=== PATIENT | female | born 1975 | race African-American/Black ===

== ENCOUNTER 2023-01-13 12:21 | Emergency (ER) | payer MEDICAID ==
[~2023-01-13] VITALS: Ht 165.1 cm; Wt 79.4 kg
[2023-01-13 12:27] VITALS: O2SAT 99
[2023-01-13] MEDS ORDERED: LIDOCAINE HCL/PF 1% 10 MG/ML 5ML VIAL INFIL ONE (13:45)
[2023-01-13] MEDS ORDERED: CEFTRIAXONE SODIUM 500 MG/VIAL IM ONE (13:45)
[2023-01-13] MEDS ORDERED: TETANUS, DIPHTHERIA, PERTUSSIS VAC/PF 0.5ML (>10YR OLD) IM ONE ×2 (13:45→17:00)
[2023-01-13] MEDS ORDERED: HYDROCODONE/ACETAMINOPHEN 5/325MG TABLET PO ONE (13:45)
[2023-01-13] MEDS ORDERED: BACITRACIN ZINC OINT UDPKT TOP ONE (13:45)
[2023-01-13] MEDS ORDERED: HYDROCODONE/ACETAMINOPHEN 5/325MG TABLET PO NR (16:30)
[2023-01-13] MEDS ORDERED: LIDOCAINE HCL/PF 1% 10 MG/ML 5ML VIAL INFIL NR (16:30)
[2023-01-13] MEDS ORDERED: BACITRACIN ZINC OINT UDPKT TOP NR (16:30)
[2023-01-13] MEDS ORDERED: CEFTRIAXONE SODIUM 500 MG/VIAL IM NR (16:30)
[2023-01-13] MEDS ORDERED: SULF1TAB48 MT (16:52)
[2023-01-13] MEDS ORDERED: BO1 TP (16:52)
[2023-01-13] MEDS ORDERED: ACET-2708 MT (16:52)
[2023-01-13] MEDS ORDERED: CEPH500T MT (16:52)
[2023-01-13] MEDS ORDERED: IBUP-2028 MT (16:52)
[2023-01-13 17:00] VITALS: BP 129/71; PULSE 81; RESP 16; TEMP 98.8
== END 2023-01-13 17:03 | disposition home or self-care (01) ==
LOC: ER 13:24
DX: L03.116 Cellulitis of left lower limb (principal)
CPT/HCPCS: 99284; 90715; 90471; 96372; J0696; J3490

== ENCOUNTER 2023-07-08 06:00 | Emergency (ER) | payer MEDICAID ==
[~2023-07-08] VITALS: Ht 165.1 cm; Wt 77.0 kg
[~2023-07-08 06:00] MED LIST: ACET-2708 MT; BO1 TP; CEPH500T MT; IBUP-2028 MT; SULF1TAB48 MT
[2023-07-08 06:14] VITALS: O2SAT 99
[2023-07-08 06:43] LABS: CLARITY URINE TURBID (CLEAR); COLOR URINE YELLOW (YELLOW); GLUCOSE URINE 3+ (NEGATIVE); KETONES URINE NEGATIVE (NEGATIVE); LEUKOCYTE ESTERASE URINE 3+ (NEGATIVE); NITRITE URINE NEGATIVE (NEGATIVE); OCCULT BLOOD URINE 3+ (NEGATIVE); PROTEIN URINE 2+ (NEGATIVE); SPECIFIC GRAVITY URINE 1.023 (1.005-1.030); UROBILINOGEN URINE 0.2 E.U./dL (0.2-1.0)
[2023-07-08] MEDS ORDERED: PHEN-815 MT (06:51)
[2023-07-08] MEDS ORDERED: NITR-87 MT (06:51)
[2023-07-08 07:10] VITALS: TEMP 98.9
[2023-07-08 07:15] VITALS: BP 136/78; PULSE 89; RESP 20
[2023-07-08] MEDS: KETOROLAC 30MG/ML VIAL IM ONE (07:15)
[2023-07-08 08:14] LABS: SQUAMOUS EPITHELIAL CELL URINE 1+ /lpf (RARE/1+); WBC URINE TNTC /hpf (0-2)
[2023-07-08 08:15] LABS: BACTERIA URINE 3+; RBC URINE 25-50 /hpf (0-2)
== END 2023-07-08 07:15 | disposition home or self-care (01) ==
LOC: ER 06:00
DX: N39.0 Urinary tract infection, site not specified (principal)
CPT/HCPCS: 81003; 81025; 87077; 87186; 99283

== ENCOUNTER 2023-08-06 06:31 | Emergency (ER) | payer MEDICAID ==
[~2023-08-06] VITALS: Ht 172.7 cm; Wt 82.0 kg
[~2023-08-06 06:31] MED LIST changes: +NITR-87 MT; +PHEN-815 MT
[2023-08-06 06:59] VITALS: O2SAT 97
[2023-08-06] MEDS: KETOROLAC 15MG/ML VIAL IM ONE (08:48)
[2023-08-06 08:56] VITALS: BP 154/98; PULSE 66; RESP 18; TEMP 97.9
== END 2023-08-06 08:57 | disposition home or self-care (01) ==
LOC: ER 06:31
DX: M25.561 Pain in right knee (principal); I11.0 Hypertensive heart disease with heart failure; I50.9 Heart failure, unspecified; Z86.39 Personal history of other endocrine, nutritional and metabolic disease
CPT/HCPCS: 99284; 73560; 73610; 96372; J1885

== ENCOUNTER 2023-09-03 15:10 | Emergency (ER) | payer MEDICAID ==
[~2023-09-03] VITALS: Ht 165.1 cm; Wt 90.7 kg
[2023-09-03 16:23] VITALS: TEMP 98.2; O2SAT 99
[2023-09-03 17:44] VITALS: BP 116/67; PULSE 75; RESP 18
[2023-09-03] MEDS: HYDROCODONE/ACETAMINOPHEN 5/325MG TABLET PO STA (17:44)
[2023-09-03] MEDS ORDERED: DOXY100T28 MT (19:13)
[2023-09-03] MEDS ORDERED: HYDR-4001 MT (19:13)
[2023-09-03] MEDS ORDERED: MUPI15CR11 TP (19:13)
== END 2023-09-03 19:52 | disposition home or self-care (01) ==
LOC: ER 15:10
DX: M17.11 Unilateral primary osteoarthritis, right knee (principal); M25.551 Pain in right hip; M25.571 Pain in right ankle and joints of right foot; S00.81XA Abrasion of other part of head, initial encounter; I50.9 Heart failure, unspecified; Z86.718 Personal history of other venous thrombosis and embolism; Z79.899 Other long term (current) drug therapy; Z86.39 Personal history of other endocrine, nutritional and metabolic disease; W10.9XXA Fall (on) (from) unspecified stairs and steps, initial encounter; Y93.89 Activity, other specified; Y92.89 Other specified places as the place of occurrence of the external cause; Y99.8 Other external cause status
CPT/HCPCS: 73502; 73562; 73610; 81025; 99284

== ENCOUNTER 2023-09-13 13:43 | Emergency (ER) | payer MEDICAID ==
[~2023-09-13] VITALS: Ht 165.1 cm; Wt 91.0 kg
[~2023-09-13 13:43] MED LIST changes: +DOXY100T28 MT; +HYDR-4001 MT; +MUPI15CR11 TP
[2023-09-13 13:49] VITALS: O2SAT 98
[2023-09-13 15:38] LABS: BASOPHILS % 0.5 % (0.0-2.0); DIFFERENTIAL COMMENT 0; EOSINOPHILS % 3.6 % (0.0-5.0); HEMATOCRIT. 40.7 % (36.0-48.0); HEMOGLOBIN. 12.9 g/dL (12.0-16.0); LYMPHOCYTES % 25.9 % (20.0-50.0); MEAN CORPUSCULAR HEMOGLOBIN 25.1 pg (28.0-32.0); MEAN CORPUSCULAR HGB CONC 31.8 g/dL (31.0-37.0); MEAN PLATELET VOLUME 8.5 fl (7.4-10.4); MONOCYTES % 8.8 % (2.0-8.0); NEUTROPHILS % 61.2 % (40.0-76.0); PLATELET 252 x1000/uL (130-400); RED BLOOD CELL COUNT 5.15 mill/uL (4.2-5.4); RED CELL DISTRIBUTION WIDTH 19.2 % (11.6-14.6)
[2023-09-13 15:40] LABS: CHLORIDE 108 mEq/L (98-107); POTASSIUM 4.1 mEq/L (3.5-5.1); SODIUM 140 mEq/L (136-145)
[2023-09-13 15:41] LABS: CALCIUM 9.1 mg/dL (8.7-10.4); CARBON DIOXIDE 26 mEq/L (21-32)
[2023-09-13 15:45] LABS: PROTHROMBIN TIME 11.1 sec (9.6-11.0)
[2023-09-13 15:46] LABS: CREATININE 0.9 mg/dL (0.6-1.0); GLUCOSE 81 mg/dL (70-105); UREA NITROGEN BLOOD 15 mg/dL (9-23)
[2023-09-13 15:48] LABS: HCG SCREEN NEGATIVE
[2023-09-13 16:05] VITALS: BP 138/88; PULSE 71; RESP 18; TEMP 98.9
[2023-09-13] MEDS: ACETAMINOPHEN 325MG TABLET PO STA (16:07)
[2023-09-13] MEDS: LIDOCAINE 5% PATCH TOP SCH (16:45)
== END 2023-09-13 16:06 | disposition home or self-care (01) ==
LOC: ER 13:43
DX: M25.551 Pain in right hip (principal); M25.552 Pain in left hip; I11.0 Hypertensive heart disease with heart failure; I50.9 Heart failure, unspecified; Z86.39 Personal history of other endocrine, nutritional and metabolic disease; Z79.899 Other long term (current) drug therapy
CPT/HCPCS: 36415; 74176; 80048; 84703; 85025; 93971; 99284

== ENCOUNTER 2024-01-25 16:27 | Emergency (ER) | payer MEDICAID ==
[~2024-01-25] VITALS: Ht 165.1 cm; Wt 91.0 kg
[2024-01-25 16:34] VITALS: O2SAT 98
[2024-01-25] MEDS: ACETAMINOPHEN 325MG TABLET PO ONE (21:53)
[2024-01-25] MEDS: KETOROLAC 30MG/ML VIAL IM ONE (21:53)
[2024-01-25] MEDS: HYDROCODONE/ACETAMINOPHEN 5/325MG TABLET PO ONE (22:02)
[2024-01-25 22:17] VITALS: BP 156/83; PULSE 60; RESP 16; TEMP 36.72516; O2SAT 99
== END 2024-01-25 22:32 | disposition home or self-care (01) ==
LOC: ER 16:27
DX: S83.92XA Sprain of unspecified site of left knee, initial encounter (principal); M25.462 Effusion, left knee; I11.0 Hypertensive heart disease with heart failure; I50.9 Heart failure, unspecified; F19.90 Other psychoactive substance use, unspecified, uncomplicated; Z79.899 Other long term (current) drug therapy; X58.XXXA Exposure to other specified factors, initial encounter; Y93.89 Activity, other specified; Y92.89 Other specified places as the place of occurrence of the external cause; Y99.8 Other external cause status
CPT/HCPCS: 73564; 99283; J1885; Z7610 ×2; L1830

== ENCOUNTER 2024-01-30 12:22 | Emergency (ER) | payer MEDICAID ==
[~2024-01-30] VITALS: Ht 165.1 cm; Wt 91.0 kg
[2024-01-30 12:29] VITALS: O2SAT 98
[2024-01-30 12:39] VITALS: BP 153/88; PULSE 79; RESP 16; TEMP 98.2; O2SAT 99
[2024-01-30] MEDS: KETOROLAC 30MG/ML VIAL IM ONE (14:48)
[2024-01-30] MEDS: HYDROCODONE/ACETAMINOPHEN 5/325MG TABLET PO ONE (14:48)
[2024-01-30] MEDS ORDERED: HYDR-4001 MT ×2 (16:47→16:49)
== END 2024-01-30 17:17 | disposition home or self-care (01) ==
LOC: ER 12:22
DX: M25.462 Effusion, left knee (principal); M25.562 Pain in left knee; I11.0 Hypertensive heart disease with heart failure; I50.9 Heart failure, unspecified
CPT/HCPCS: 99283; 81025; 96372; J1885

== ENCOUNTER 2024-03-01 01:30 | Emergency (ER) | payer MEDICAID ==
[~2024-03-01] VITALS: Ht 165.1 cm; Wt 132.0 kg
[2024-03-01 01:35] VITALS: BP 188/109; PULSE 102; RESP 18; TEMP 98.8; O2SAT 97
[2024-03-01] MEDS: LORAZEPAM 0.5MG TABLET PO ONE (02:00)
[2024-03-01 02:53] LABS: BASOPHILS % 0.4 % (0.0-2.0); EOSINOPHILS % 1.1 % (0.0-5.0); HEMATOCRIT. 39.5 % (36.0-48.0); LYMPHOCYTES % 19.6 % (20.0-50.0); MEAN CORPUSCULAR HEMOGLOBIN 26.8 pg (28.0-32.0); MEAN CORPUSCULAR HGB CONC 32.9 g/dL (31.0-37.0); MEAN CORPUSCULAR VOLUME 81.5 fL (81.0-99.0); MEAN PLATELET VOLUME 9.7 fl (7.4-10.4); MONOCYTES % 9.2 % (2.0-8.0); NEUTROPHILS % 69.7 % (40.0-76.0); PLATELET 225 x1000/uL (130-400); RED BLOOD CELL COUNT 4.85 mill/uL (4.2-5.4); RED CELL DISTRIBUTION WIDTH 16.2 % (11.6-14.6); WHITE BLOOD COUNT 8.2 x1000/uL (4.5-11.0)
[2024-03-01 02:58] LABS: CHLORIDE 106 mEq/L (98-107); POTASSIUM 3.4 mEq/L (3.5-5.1); SODIUM 141 mEq/L (136-145)
[2024-03-01 02:59] LABS: CALCIUM 9.2 mg/dL (8.7-10.4); CARBON DIOXIDE 26 mEq/L (21-32)
[2024-03-01 03:04] LABS: CREATININE 0.9 mg/dL (0.6-1.0); GLUCOSE 97 mg/dL (70-105); UREA NITROGEN BLOOD 15 mg/dL (9-23)
[2024-03-01 03:06] LABS: TROPONIN I HIGH SENSITIVITY 8 ng/L (3.0-34)
[2024-03-01 04:40] LABS: TROPONIN I HIGH SENSITIVITY 9 ng/L (3.0-34)
== END 2024-03-01 15:50 | disposition left against medical advice (07) ==
LOC: ER 01:30 → EDBEDREQ 05:09 → ER 15:50
DX: R00.2 Palpitations (principal); E87.6 Hypokalemia; I50.9 Heart failure, unspecified; I11.0 Hypertensive heart disease with heart failure; F19.90 Other psychoactive substance use, unspecified, uncomplicated
CPT/HCPCS: 36415; 80048; 83880; 84484; 85025; 93005; 99284

== ENCOUNTER 2024-03-04 16:02 | Emergency (ER) | payer MEDICAID ==
[2024-03-04 16:46] VITALS: PULSE 87; RESP 18; O2SAT 97
[2024-03-04] MEDS ORDERED: ASPIRIN 325MG EC TABLET PO ONE (18:00)
== END 2024-03-04 18:53 | disposition left against medical advice (07) ==
LOC: ER 16:02
DX: R07.9 Chest pain, unspecified (principal); Z53.21 Procedure and treatment not carried out due to patient leaving prior to being seen by health care provider
CPT/HCPCS: 71045

== ENCOUNTER 2024-04-23 02:39 | Emergency (ER) | payer MEDICAID ==
[~2024-04-23] VITALS: Ht 165.1 cm; Wt 119.0 kg
[2024-04-23 03:04] VITALS: TEMP 36.8; O2SAT 97
[2024-04-23] MEDS: METOCLOPRAMIDE HCL 10MG TABLET PO ONE (03:37)
[2024-04-23 03:40] VITALS: BP 177/132; PULSE 94; RESP 18
[2024-04-23] MEDS: KETOROLAC 15MG/ML VIAL IM ONE (03:40)
[2024-04-23 03:47] LABS: BASOPHILS % 0.3 % (0.0-2.0); EOSINOPHILS % 0.1 % (0.0-5.0); HEMATOCRIT. 40.5 % (36.0-48.0); HEMOGLOBIN. 13.1 g/dL (12.0-16.0); MEAN CORPUSCULAR HGB CONC 32.5 g/dL (31.0-37.0); MEAN CORPUSCULAR VOLUME 80.2 fL (81.0-99.0); MONOCYTES % 7.1 % (2.0-8.0); NEUTROPHILS % 74.5 % (40.0-76.0); PLATELET 273 x1000/uL (130-400); RED BLOOD CELL COUNT 5.05 mill/uL (4.2-5.4); RED CELL DISTRIBUTION WIDTH 14.7 % (11.6-14.6); WHITE BLOOD COUNT 9.6 x1000/uL (4.5-11.0)
[2024-04-23 03:50] LABS: CLARITY URINE CLEAR (CLEAR); COLOR URINE YELLOW (YELLOW); GLUCOSE URINE NEGATIVE (NEGATIVE); KETONES URINE NEGATIVE (NEGATIVE); LEUKOCYTE ESTERASE URINE TRACE (NEGATIVE); NITRITE URINE NEGATIVE (NEGATIVE); OCCULT BLOOD URINE TRACE (NEGATIVE); PROTEIN URINE NEGATIVE (NEGATIVE); UROBILINOGEN URINE 0.2 E.U./dL (0.2-1.0)
[2024-04-23 04:01] LABS: CHLORIDE 105 mEq/L (98-107); POTASSIUM 3.8 mEq/L (3.5-5.1); SODIUM 141 mEq/L (136-145)
[2024-04-23 04:02] LABS: CALCIUM 9.3 mg/dL (8.7-10.4); CARBON DIOXIDE 26 mEq/L (21-32)
[2024-04-23 04:07] LABS: CREATININE 0.8 mg/dL (0.6-1.0); GLUCOSE 104 mg/dL (70-105); UREA NITROGEN BLOOD 14 mg/dL (9-23)
[2024-04-23 04:09] LABS: ALANINE AMINOTRANSFERASE 14 IU/L (10-49); ALBUMIN 4.4 g/dL (3.2-4.8); BILIRUBIN DIRECT 0.2 mg/dL (<=3.0); BILIRUBIN TOTAL 0.7 mg/dL (0.1-1.0); TROPONIN I HIGH SENSITIVITY 9 ng/L (3.0-34)
[2024-04-23 04:41] LABS: SQUAMOUS EPITHELIAL CELL URINE FEW /lpf (RARE/1+)
[2024-04-23 04:42] LABS: RBC URINE 0-2 /hpf (0-2)
[2024-04-23 04:44] LABS: BACTERIA URINE NONE SEEN
[2024-04-23] MEDS: SODIUM CHLORIDE 0.9% 1,000 ML IV ONE (04:45)
[2024-04-23] MEDS ORDERED: NAPR-1176 MT (05:20)
[2024-04-23] MEDS ORDERED: MORPHINE SULFATE 2 MG/ML INJ (NOT FOR IM USE) IV ONE (06:15)
[2024-04-23] MEDS: METOCLOPRAMIDE HCL 10MG/2ML VIAL IV ONE (07:02)
[2024-04-23] MEDS: ACETAMINOPHEN 1000MG/100ML 100 ML IV ONE (07:02)
[2024-04-23 08:26] LABS: PROTEIN TOTAL 7.9 g/dL (6.0-8.3)
[2024-04-23 10:47] LABS: ASPARTATE AMINOTRANSFERASE 22 IU/L (<34)
== END 2024-04-23 08:00 | disposition home or self-care (01) ==
LOC: ER 02:39
DX: G43.909 Migraine, unspecified, not intractable, without status migrainosus (principal); Z79.1 Long term (current) use of non-steroidal anti-inflammatories (NSAID); I11.0 Hypertensive heart disease with heart failure; I50.9 Heart failure, unspecified; E78.5 Hyperlipidemia, unspecified; Z79.899 Other long term (current) drug therapy
CPT/HCPCS: 80076; 80048; 81003; 83880; 83690; 84450; 85025; 84484; 36415; 70450; 93005; 96361; 96365; 96372; 96375; 99285; J8597; J1885; J2765; J7030; Z7610 ×2; J0131